=== PATIENT | male | born 1980 | race Hispanic/Latino ===

== ENCOUNTER 2019-03-05 15:01 | Emergency (ER) | payer OTHER ==
[2019-03-05] MEDS ORDERED: TORADOL IM ONE (15:39)
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
[2019-03-05 18:31] VITALS: BP 119/76
== END 2019-03-05 18:31 | disposition home or self-care (01) ==
LOC: ED 15:01
DX: S16.1XXA Strain of muscle, fascia and tendon at neck level, initial encounter (principal); S39.012A Strain of muscle, fascia and tendon of lower back, initial encounter; S09.90XA Unspecified injury of head, initial encounter; Z98.890 Other specified postprocedural states; Z79.899 Other long term (current) drug therapy; Z88.0 Allergy status to penicillin; V89.2XXA Person injured in unspecified motor-vehicle accident, traffic, initial encounter; Y93.89 Activity, other specified; Y92.488 Other paved roadways as the place of occurrence of the external cause; Y99.8 Other external cause status
CPT/HCPCS: 70450; 72070; 72100; 72125; 96372; 99284; J1885

== ENCOUNTER 2020-05-01 12:37 | Emergency (ER) | payer SELFPAY ==
[2020-05-01 15:00] VITALS: BP 144/96
[2020-05-01] MEDS ORDERED: MORPHINE 4 MG/1 ML INJ IM STA (16:47)
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
== END 2020-05-01 18:13 | disposition home or self-care (01) ==
LOC: ED 12:37
DX: R22.42 Localized swelling, mass and lump, left lower limb (principal); F17.200 Nicotine dependence, unspecified, uncomplicated; Z79.899 Other long term (current) drug therapy; Z88.0 Allergy status to penicillin
CPT/HCPCS: 93971; 96372; 99283; J2270